=== PATIENT | female | born 1975 | race Hispanic/Latino ===

== ENCOUNTER → 2018-07-26 08:58 | Outpatient (CLI) | payer OTHER, SELFPAY ==
[2018-07-26 10:48] LABS: Hematocrit 40.6 % (37-47); Hemoglobin 13.6 g/dl (12.0-15.0); Mean Corp Hgb Conc 33.5 g/gl (32-36); Mean Corpuscular Hgb 28.6 pg (27.0-32.0); Mean Corpuscular Volume 85.5 fL (81-99); Mean Platelet Vol. 10.6 fl (6.2-12.0); Platelet Count 276 K/mm3 (150-450); RBC Distribution Width CV 13.2 % (11.6-14.6); RBC Distribution Width SD 41.3 fl (35.1-43.9); Red Blood Count 4.75 M/mm3 (4.2-5.4); White Blood Count 6.3 K/mm3 (4.4-11.0)
[2018-07-26 10:50] LABS: Scan Indicated on CBC? Y/N NO
[2018-07-26 11:09] LABS: Estradiol 175.4 pg/mL; Follicle Stimulating Hormone 3.7 mIU/mL; Free T3 2.7 pg/mL (2.18-3.98); Glucose 87 mg/dL (74-106); T4 Free Direct 1.15 ng/dL (0.76-1.46); Thyroid Stim Hormone (TSH) 1.18 uIU/mL (0.358-3.74)
[2018-07-26 11:10] LABS: Insulin 4.8 mU/L (2.6-37.6); Progesterone Level 12.21 ng/mL (See Comment)
[2018-07-26 11:14] LABS: Hemoglobin A1c 5.5 % (4.2-6.3)
[2018-07-27 11:25] LABS: DHEA Sulfate 159.8 ug/dL (57.3-279.2)
== END ==
PROVIDERS: Visit Provider Obstetrics & Gynecology
DX: N94.3 Premenstrual tension syndrome (principal)
CPT/HCPCS: 36415; 82533; 82627; 82670; 82947; 83001; 83036; 83525; 84144; 84403; 84439; 84443; 84481; 85027; 82626

== ENCOUNTER → 2018-11-07 08:25 | Outpatient (CLI) | payer OTHER, SELFPAY ==
[2018-11-07 10:56] LABS: Estradiol 135.3 pg/mL
[2018-11-07 10:59] LABS: Progesterone Level 14.48 ng/mL (See Comment)
[2018-11-08 08:18] LABS: DHEA Sulfate 181.7 ug/dL (57.3-279.2)
== END ==
PROVIDERS: Visit Provider Obstetrics & Gynecology
DX: N94.3 Premenstrual tension syndrome (principal)
CPT/HCPCS: 36415; 82533; 82627; 82670; 84144; 82626

== ENCOUNTER 2021-09-05 20:25 | Emergency (ER) | payer OTHER, SELFPAY ==
[2021-09-05 20:26] VITALS: BP 192/111; PULSE 102; RESP 16; TEMP 36.9; O2SAT 100; BMI 21.9
--- NOTE | 2021-09-05 20:53 | EKG12_ITS ---
Test Reason : PALPITATIONS Blood Pressure : / mmHG Vent. Rate : 075 BPM Atrial Rate : 075 BPM P-R Int : 148 ms QRS Dur : 068 ms QT Int : 354 ms P-R-T Axes : 057 015 018 degrees QTc Int : 395 ms Normal sinus rhythm Low voltage QRS Nonspecific ST abnormality Abnormal ECG Confirmed by SULLY CHRISTIANSON, DELMA ([id number]), associate entertainment editor RAUL WELLS ([id number]) on 09/07/2021 7:19:06 AM Referred By: SUZANNE Confirmed By:DELMA VIRK MD
[2021-09-05] MEDS: Aspirin 81 MG TAB.CHEW 324 MG PO (20:57)
--- NOTE | 2021-09-05 20:58 | RAD_ITS ---
STUDY: X-RAY CHEST REASON FOR EXAM: Female, 45 years old. chest pain TECHNIQUE: Frontal view COMPARISON: None. FINDINGS: 4 mm nodular density right base. Left lung clear. There is no demonstrated pleural abnormality. Normal size heart. Normal mediastinum and josemanuel. Normal visualized pulmonary arteries. Normal visualized aortic arch and descending thoracic aorta. Normal visualized thoracic spine. Normal visualized ribs, clavicles, and shoulders. There is no demonstrated abnormality of the visualized soft tissue structures of the upper abdomen. RAD/Chest 1 View (Portable) IMPRESSION: 4 mm nodular density right base. Recommend comparison to old chest x-ray. If unavailable recommend chest CT as per Fleischner Society guidelines. Electronically Signed: Martínez Nicole MD, TRACIE at 21:11 EDT ,
[2021-09-05 21:05] LABS: Absolute Lymphocyte Count 3.58 X10^3/uL (0.83-4.51); Absolute Neutrophil Count 3.9 X10^3/uL (2.0-7.7); Basophil# 0.07 X10^3/uL; Basophil% 0.8 % (0-1); Eosinophil# 0.17 X10^3/uL; Hematocrit 40.2 % (37-47); Hemoglobin 13.4 g/dL (12.0-15.0); Lymphocyte # 3.58 X10^3/ul (0.83-4.51); Lymphocyte % 42.9 % (19-41); Mean Corp Hgb Conc 33.3 g/dL (32-36); Mean Corpuscular Hgb 28.8 pg (27.0-32.0); Mean Corpuscular Volume 86.5 fL (81-99); Mean Platelet Vol. 10.4 fl (6.2-12.0); Monocyte# 0.64 X10^3/uL; Monocyte% 7.7 % (0-10); NRBC Flagged by Analyzer 0 % (0-5); Neutrophil # 3.87 X10^3/uL (2.7-7.7); Neutrophil % 46.5 % (47-70); Platelet Count 268 K/mm3 (150-450); RBC Distribution Width CV 12.8 % (11.6-14.6); RBC Distribution Width SD 39.9 fl (35.1-43.9); Red Blood Count 4.65 M/mm3 (4.2-5.4); White Blood Count 8.3 K/mm3 (4.4-11.0)
[2021-09-05 21:34] LABS: Anion Gap 5 (5-15); BUN 14 mg/dL (7-18); BUN/Creat Ratio 23.3 RATIO (10-20); Calcium,Total 8.3 mg/dL (8.5-10.1); Chloride 107 mmol/L (98-107); EST Glomerular Filtration Rate 116 mL/min (>60); Est Glom Filt Rate - Afr Amer 140 mL/min (>60); Estimated Creatinine Clearance 91.23 ml/min; Glucose 108 mg/dL (74-106); Potassium 3.3 mmol/L (3.5-5.1); Sodium Level 139 mmol/L (136-145); Troponin-I HS (w/2H Reflex) < 3 pg/mL (3.0-54.0)
--- NOTE | 2021-09-05 22:32 | EDS_ITS ---
HPI History of Present Illness Chief Complaint: Palpitations Narrative Narrative: Patient presents with palpitations, she has had these episodes in the past does seem to have been worse, she was wearing an apple watch and I was able to see that her heart rate got up to about 149 just prior to arrival. She tells me this was at rest. By time she got to the ED her symptoms subsided. No back pain or tearing sensation, no pleuritic component. No recent fevers or chills, no travel history. No calf pain. [facility] Medical History (Updated 09/05/21 @ 22:[address] Germain Pacheco MD) delivery delivered Hernia Hypertension Home Medications propranolol 20 mg PO DAILY 09/05/21 [History Last Taken 09/03/21] Allergy/AdvReac Type Severity Reaction Status Date / Time No Known Allergies Allergy Verified 09/05/21 20:31 Social History Smoking Status: Never smoker ROS ROS ED ROS Narrative Past medical history: Hypertension Medications: Reviewed Social history: Noncontributory Review of systems: All systems negative except as indicated General: No fever Eyes: No visual changes ENT: No upper airway congestion, normal voice Neck: No neck pain Cardiovascular: Palpitations as in HPI Respiratory: No shortness of breath or cough Gastrointestinal: No abdominal pain, nausea vomiting or diarrhea Genitourinary: No dysuria Musculoskeletal: Denies myalgias no difficulty with ambulation Skin: No rash Neurological: No memory loss, confusion or any focal weakness Psych: No recent behavioral changes Hematologic: No easy bleeding or easy bruising EXAM Physical Exam Narrative Exam Narrative: Physical exam General: Well nourished, Well developed, No Acute Distress Head: Normocephalic, Atraumatic Eyes: Conjunctiva not pale ENT: Moist mucous membranes Neck: Supple, Nontender, No lymphadenopathy Cardiovascular: Regular rate, Regular rhythm. Normal peripheral pulses. No murmur. Respiratory: No distress, CTA bilaterally Abdomen: Soft, Nontender, Nondistended Back: Nontender, Normal Inspection. Negative for: CVA tenderness Extremities: Nontender, No edema Skin: Normal color, No rash Neurological: Alert, Normal Strength, Normal Sensation Psychological: Normal affect Const Vital Signs: 09/05/21 20:26 09/05/21 20:35 09/05/21 21:00 Temperature 98.4 F Temperature Source Oral Pulse Rate 102 H Respiratory Rate 16 Respiratory Effort Normal Non-Labored Blood Pressure 192/111 H Blood Pressure Mean 138 Pulse Ox 100 Oxygen Delivery Method Room Air Room Air MDM MDM MDM Narrative Medical decision making narrative: Patient has an unremarkable ED work-up. I am wondering about the possibility of SVT, I cannot prove it, regardless patient is safe to be discharged she ruled out from the cardiac standpoint. If anything changes she is to return. I did set her up with a Holter monitor and I will refer her to cardiology Lab Data Labs: Laboratory Results - last 24 hr 09/05/21 09/05/21 20:40 20:40 WBC 8.3 RBC 4.65 Hgb 13.4 Hct 40.2 MCV 86.5 MCH 28.8 MCHC 33.3 RDW Std Deviation 39.9 RDW Coeff of Randy 12.8 Plt Count 268 MPV 10.4 Immature Gran % (Auto) 0.100 Neut % (Auto) 46.5 L Lymph % (Auto) 42.9 H Towns % (Auto) 7.7 Eos % (Auto) 2.0 Baso % (Auto) 0.8 Absolute Neuts (auto) 3.9 Absolute Lymphs (auto) 3.58 Nucleated RBC % 0 Sodium 139 Potassium 3.3 L Chloride 107 Carbon Dioxide 27.0 Anion Gap 5 BUN 14 Creatinine 0.60 Estim Creat Clear Calc 91.23 Est GFR (MDRD) Af Amer 140 Est GFR (MDRD) Non-Af 116 BUN/Creatinine Ratio 23.3 H Glucose 108 H Calcium 8.3 L Troponin I High Sens < 3 L Radiography Diagnostic Testing: Clinical Impression(s) from Imaging Studies Chest X-Ray 09/05/21 20:58 IMPRESSION: 4 mm nodular density right base. Recommend comparison to old chest x-ray. If unavailable recommend chest CT as per Fleischner Society guidelines. Electronically Signed: Martínez Nicole MD, TRACIE at 21:11 EDT , X-ray interpreted by me does not show any acute abnormality Discharge Plan Triage Chief Complaint: Palpitations ED Provider: Germain Pacheco Dx/Rx/DC Orders Clinical Impression: Heart palpitations, Tachycardia Instructions: ED Palpitations Prescriptions: No Action propranolol 20 mg tablet 20 mg PO DAILY RF: 0 Primary Care Provider: Nando Maldondao Referrals: Nando Maldonado DO [Primary Care Provider] - Jayy Dasilva MD [STAFF PHYSICIAN] - 3-5 Days Disposition Disposition: Home, Self Care
[2021-09-05 22:44] VITALS: BP 169/96; PULSE 88; RESP 18; O2SAT 100
[2021-09-05 23:01] LABS: Reflex Troponin-HS? (from REC) Y
== END 2021-09-05 22:47 | disposition home or self-care (01) ==
PROVIDERS: Emergency Provider Emergency Medicine; PCP Student in an Organized Health Care Education/Training Program; Visit Provider Emergency Medicine
DX: R00.2 Palpitations (principal); I10 Essential (primary) hypertension; R00.0 Tachycardia, unspecified
CPT/HCPCS: 71045; 80048; 84484; 85025; 93005; 93225; 93226; 99285

== ENCOUNTER → 2021-09-05 | Outpatient (CLI) | payer OTHER, SELFPAY | END | disposition home or self-care (01) | LOC: CVS 22:15 | PROVIDERS: PCP Student in an Organized Health Care Education/Training Program; Visit Provider Emergency Medicine | DX: Z00.00 Encounter for general adult medical examination without abnormal findings (principal) ==

== ENCOUNTER → 2021-09-29 | Outpatient (CLI) | payer OTHER, SELFPAY ==
--- NOTE | 2021-09-30 15:25 | STRESSREP ---
Stress Test Report Exercise stress test. 45-year-old lady with a history of chest pain. Stress protocol: Resting KG demonstrates normal sinus rhythm with a rate of 74 bpm normal intervals are noted resting blood pressure is 132/90 mmHg. Patient exercised according to regular Da protocol for total duration of 7 minutes and 30 seconds. The maximum heart rate attained was 173 bpm which was 97% of max impacted heart rate the maximum workload was 10.1 metabolic equivalents. At rest there were no ST or T wave changes noted to suggest ischemia and at peak exercise upsloping ST changes were noted with did not meet the criteria for ischemia. No clinical angina was noted. The test was terminated due to dyspnea. No chest pain was noted. Myocardial perfusion protocol. 9.8 mCi of technetium 99m sestamibi was injected at rest. The patient exercised according to regular Da protocol for total duration of 7 minutes and 30 seconds. At peak exercise 30.6 mCi of technetium 99m sestamibi was injected stress images were obtained stress and rest images were reconstructed and compared in the short axis vertical long and horizontal long axis. Gated images were also obtained for Perfusion SPECT analysis: Review of the stress images demonstrate normal uptake of tracer noted in all areas of the myocardium. The resting images similarly demonstrate normal uptake of tracer noted in all areas of the myocardium. No areas of reversibility are noted suggest ischemia and no previous infarct is noted. Gated SPECT analysis: The gated ejection fraction is 80%. Conclusion: Normal exercise myocardial perfusion stress test at a high workload. Preserved ejection fraction.
== END | disposition home or self-care (01) ==
LOC: CVS 07:18
PROVIDERS: PCP Student in an Organized Health Care Education/Training Program; Referring Provider Nurse Practitioner Family; Visit Provider Nurse Practitioner Family
DX: R42 Dizziness and giddiness (principal); R55 Syncope and collapse
CPT/HCPCS: 78452; 93017; A9500; A4216

== ENCOUNTER 2022-10-06 08:30 | Day surgery (SDC) | payer OTHER, SELFPAY ==
--- NOTE | 2022-09-30 14:03 | EKG12_ITS ---
Test Reason : PRE OP Blood Pressure : / mmHG Vent. Rate : 061 BPM Atrial Rate : 061 BPM P-R Int : 144 ms QRS Dur : 062 ms QT Int : 380 ms P-R-T Axes : -08 054 030 degrees QTc Int : 382 ms Normal sinus rhythm Septal infarct , age undetermined Abnormal ECG Confirmed by SULLY CHRISTIANSON, DELMA ([id number]), news editor RAUL WELLS ([id number]) on 10/03/2022 11:13:10 AM Referred By: Tory Calhoun Confirmed By:DELMA VIRK MD
[2022-09-30 15:05] LABS: Hematocrit 41.4 % (37-47); Hemoglobin 13.7 g/dL (12.0-15.0); Mean Corp Hgb Conc 33.1 g/dL (32-36); Mean Corpuscular Volume 87.5 fL (81-99); Mean Platelet Vol. 10.5 fl (6.2-12.0); Platelet Count 282 K/mm3 (150-450); RBC Distribution Width CV 12.4 % (11.6-14.6); RBC Distribution Width SD 39.8 fl (35.1-43.9); Red Blood Count 4.73 M/mm3 (4.2-5.4)
[2022-09-30 15:32] LABS: Anion Gap 7 (5-15); BUN 11 mg/dL (7-18); BUN/Creat Ratio 15.6 RATIO (10-20); Chloride 104 mmol/L (98-107); Creatinine, Serum 0.71 mg/dL (0.55-1.02); EST Glomerular Filtration Rate 95 mL/min (>60); Est Glom Filt Rate - Afr Amer 115 mL/min (>60); Glucose 78 mg/dL (74-106); Potassium 3.7 mmol/L (3.5-5.1); Sodium Level 137 mmol/L (136-145)
--- NOTE | 2022-10-05 17:19 | PCM.HP.BLA ---
History and Physical Date of Admission: 10/06/22 Pre-Op History and Physical ? HPI: The patient is a 46 year old female presenting for pre-operative visit. She is scheduled for laparoscopic bilateral salpingectomy , for desires sterilization on 10/06/22. Procedure discussed along with risks, benefits and complications. Other alternatives discussed for management. Consent form signed? Yes. ? ? PAST MEDICAL HISTORY PAST MEDICAL HISTORY Diagnosis Date ? Abnormal glandular Papanicolaou smear of cervix 07/09/2004 ? ASCUS, Positive HPV ? H. pylori infection 06/2013 ? Headache ? ? on propranolol ? Hypertension ? ? Other acne ? ? Premenstrual dysphoric disorder ? ? Urinary tract infection, site not specified ? ? Several episodes, no cultures in old records ? Vitamin D deficiency 06/2013 ? ? PAST SURGICAL HISTORY PAST SURGICAL HISTORY Procedure Laterality Date ? DELIVERY ONLY ? 11/16/2003 ? , low cervical ? EGD ? 07/13/2021 ? ESOPHAGOGASTRODUODENOSCOPY TRANSORAL DIAGNOSTIC ? 02/05/2013 ? EGD ? REPAIR ING HERNIA,5+Y/O,REDUCIBL ? 04/01/2020 ? VAGINOSCOPY ? 08/15/2004 ? ? ? CURRENT MEDICATIONS Current Outpatient Medications Medication Sig Dispense Refill ? metoprolol succinate ER (TOPROL XL) 50 mg 24 hr tablet Take 50 mg by mouth once daily. ? ? ? KRILL OIL ORAL Take by mouth once daily. ? ? ? naproxen (NAPROSYN) 500 mg tablet Take 1 tablet by mouth twice daily as needed (pain/inflammation, take with food.). 15 tablet 11 ? Cholecalciferol, Vitamin D3, 2,000 unit cap Take 1 tablet by mouth once daily. 30 capsule 4 ? Current Facility-Administered Medications Medication Dose Route Frequency Provider Last Rate Last Admin ? perflutren lipid microspheres 1.3 mL in NaCl (PF) 0.9% 10 mL injection (DEFINITY) INTRAVENOUS DIRECTED PRN Columba Mcdaniels SUPERVISOR [employer]ING.SLIDE MACHINE TENDER ? sodium chloride 0.9 % (flush) 10 mL (BD POSIFLUSH) 10 mL INTRAVENOUS DIRECTED PRN Columba Mcdaniels, SUPERVISOR [employer]ING.SLIDE MACHINE TENDER ? ? ALLERGIES: Patient has no known allergies. ? PERSONAL HISTORY: SOCIAL HISTORY Social History ? Tobacco Use ? Smoking status: Never ? Smokeless tobacco: Never Vaping Use ? Vaping Use: Never used Substance Use Topics ? Alcohol use: No ? Drug use: No ? FAMILY HISTORY: FAMILY HISTORY FAMILY HISTORY Problem Relation Age of Onset ? Hypertension Mother ? ? Hypertension Father ? ? Cancer Father ? ? stomach ? Coronary Artery Disease Other ? ? none ? Diabetes Other ? ? none ? Breast Cancer Other ? ? none ? Cancer Sister ? ? stomach ? ? REVIEW OF SYMPTOMS: negative except as noted above PHYSICAL EXAMINATION: ? VITALS: Blood pressure 112/68, weight 122 lb (55.3 kg), last menstrual period 09/11/2022. ? GENERAL: The patient is well nourished, well hydrated in no acute distress. , The patient is oriented to time, place, and person. NECK: full range of motion LUNGS: Clear to auscultation bilaterally. no wheezes, rhonchi or rales HEART: Regular rate and rhythm, Normal heart sounds, and No murmurs or gallops ? ? IMPRESSION: 46yo desires permanent sterilization ? PLAN: Laparoscopic bilateral salpingectomy ? Pt has been counseled on risks/benefits and alternatives of surgery including but not limited to anesthesia, bleeding, infection, injury to pelvic structures including bowel, bladder, ureters and vessels. Pt wishes to proceed with surgery at this time. Pt understands this is permanent ? Pre and post op instructions reviewed. ? I have reviewed and updated past medical and surgical history, medications and allergies Tory Small MD ?5:58 PM Office Visit on 09/23/2022 Office Visit on 09/23/2022 Note shared with patient
[2022-10-06] VITALS (7 sets, daily range): BP systolic 123–150; BP diastolic 70–99; PULSE 57–77; RESP 12–16; TEMP 36.9–37.1; O2SAT 99–100; BMI 22.8
--- NOTE | 2022-10-06 | FALS_PTH ---
PATIENT: JULIA GERONIMO LOC: [facility] [place] U#:[id number] AGE/SX: 46/F ROOM: RE10/06/[address]: Dr. Tory Calhoun, MDDOB: 1975 BED: DIS: 10/06/2022 SPEC #: [id number] RECD: 10/06/22 12:17 STATUS: DELORES МАРИЯ #: [id number] JESÚS: 10/06/22 00:[address]: Tory Calhoun DEPT: SURGICAL PATHOLOGY RECD BY: Manoj Lu ENTERED: 10/06/22 12:17 SP TYPE: FALL TUBES OTHR DR: Dr. Nando Maldonado, DO Tissues: Fallopian tube Procedures: Surgery Specimen Level II HEADER OPERATION: Laparoscopic salpingectomy PRE-OP DIAGNOSIS: Sterilization TISSUE SUBMITTED: Bilateral fallopian tubes MICROSCOPIC DIAGNOSIS Right and left fallopian tubes, bilateral salpingectomies: Complete segments of fallopian tubes. Benign paratubal cysts. AM:timoteo 10/07/2022 MICROSCOPIC DESCRIPTION Slides are reviewed. GROSS DESCRIPTION Received in fixative is one container labeled with the patient's name and designated bilateral fallopian tubes. The specimen consists of two fallopian tubes with an average length of 5.5 cm and has an average diameter of 0.6 cm. Both fallopian tubes have normal fimbriated ends. No mass lesions are identified. Back Maker sections are submitted in two cassettes as follows: 1 - one fallopian tube, 2??the other fallopian tube. / AM:timoteo 10/06/2022 TC:5 CPT: 96868 x2
[2022-10-06 08:58] LABS: Internal QC Validated? YES +Cl - CLEAR BKGD; Pregnancy, Urine Negative Negative
[2022-10-06] MEDS: Lactated Ringers 1,000 ML 15 ML IV (09:12)
[2022-10-06] MEDS: Bupivacaine 0.5% PF 10 ML VIAL (10:45)
--- NOTE | 2022-10-06 11:00 | DCINST_ITS ---
Discharge Instructions Procedure Other Diet Discharge Diet: No restrictions Activity May resume sexual activity in: 2 weeks Lifting Restrictions: 20-25 lbs Dressing / Incision Call your doctor if your incision/area has: Continuous Slow Oozing, Sudden Increased Bleeding, Increased Pain/ Swelling, Increased Redness, Foul Smelling Discharge and Swelling at the incision site Call your doctor if you observe: Fever of 101 or Higher, Inability to urinate, Inability to have a bowel movement, Using more than 1 pad per hour and Uncontrolled pain Additional Dressing/Incision Instructions:: You have skin glue over your incision sites, do not pick off. You may shower and let the soap and water run over the incision sites and dab dry. Follow Up Care Please Follow Up With: Tory Calhoun MD When: 1-2 weeks post OP if you need an appointment please call [phone] Test Results: Test results from this visit will be discussed in further detail at your follow- up appointment, if applicable. Discharge Plan Admission Attending Provider: Tory Calhoun Primary Care Provider: Nando Maldonado Discharge Orders/Prescriptions Prescriptions: No Action biotin 1 mg capsule 1 mg PO DAILY krill oil 500 mg capsule 500 mg PO BID cholecalciferol (vitamin D3) 25 mcg (1,000 unit) capsule 25 mcg PO DAILY fexofenadine [Mitali Allergy] 180 mg tablet 180 mg PO DAILY metoprolol succinate [Toprol XL] 50 mg tablet extended release 24 hr 50 mg PO DAILY Qty: 90 3RF Referrals / Follow Up: Nando Maldonado DO [Primary Care Provider] - Disposition Disposition (needs filled in before D/C Order can be placed): Home, Self Care
--- NOTE | 2022-10-06 11:00 | PCM.OPRPT ---
Report of Operation Date of Procedure: 10/06/22 Pre-Operative Diagnosis: Sterilization request Post-Operative Diagnosis: Same Surgery/Procedure Performed:: Laparoscopic Bilateral Salpingectomy Description of Surgical Findings:: normal tubes and ovaries bilaterally Surgeon: Tory Calhoun instruction assistant principal: None Type of Anesthesia: General and Local Special Medications: 0.5% MARCAINE Specimen's removed: BILATERAL FALLOPIAN TUBES Drains: NONE Estimated Blood Loss (mL): <5CC Fluids Replaced: 500CC Description of Procedure: After informed consent was obtained patient was taken to the operating room she was placed in supine position she was given anesthesia. She was then placed in the [facility] stirrups and she was prepped and draped in normal sterile fashion. Bladder was drained prior to the start of procedure. At this time attention was turned to the vaginal portion where weighted speculum placed at posterior fornix vagina single-tooth tenaculum was used to gently grasp the internal the cervix. uterus was gently sounded to approximately 7cm. Uterine manipulator was placed without difficulty. Legs then placed in parallel with the abdomen the tenaculum and the weighted speculum were removed. 2 towel clamps were placed at level of umbilicus. Marcaine was injected infraumbilical and a small incision was made. The 5 mm trocar was placed under direct visualization. CO2 gas was used to insufflate the intra-abdominal cavity. Upon inspection no gross abnormalities appreciated- the uterus tubes and ovaries appeared to be normal. At this time then the LLQ and RLQ ports were placed First Marcaine was injected and small incision was made a knife and the 5 mm trocars were placed. At this time then tubes were traced back to the fimbriated ends. ENSEAL was used to coagulate and ligate along mesosalpinx bilaterally until tubes removed completely. Good hemostasis was appreciated. At this time procedure was deemed complete successful. The gas was desufflated on from the intra-abdominal cavity. The trochars were removed. Skin was closed using 4-0 Monocryl in a subcutaneous fashion. Dermabond glue was placed. Instrument lap and needle counts were correct ?2. The uterine manipulator was removed. Vaginal sweep was performed it was negative. There were no complications anticipated normal postoperative course for this patient. Grafts/Implants Used: NONE Procedure Start Time: 10:41 Procedure Stop Time: 10:58 Complications none Admit VTE Documentation VTE Present on Admission: Yes VTE Mechan Device Prophylaxis: SCD's VTE Pharm Prophylaxis ordered?: No Reason prophylaxis not ordered:: Procedure Not Indicated
== END 2022-10-06 12:44 | disposition home or self-care (01) ==
LOC: SDC 08:30 → AC 08:30
PROVIDERS: Anesthesiology; PCP Student in an Organized Health Care Education/Training Program; Referring Provider Obstetrics & Gynecology; Visit Provider Obstetrics & Gynecology
PROC: (CPT 58661; principal; 2022-10-06 09:55)
DX: Z30.2 Encounter for sterilization (principal); N83.8 Other noninflammatory disorders of ovary, fallopian tube and broad ligament; I10 Essential (primary) hypertension
CPT/HCPCS: 58661; 00840; 36415; 80048; 81025; 85027; 88302; 93005; J7120; C1760; J2405